=== PATIENT | female | born 1965 | race Caucasian/White ===

== ENCOUNTER 2016-12-10 08:33 | Emergency (ER) | payer BC ==
[~2016-12-10] VITALS: Ht 154.9 cm; Wt 52.0 kg
[~2016-12-10 08:33] MED LIST: CTLP20T PO; HYDR5SOL PO; IBUP200C PO; NAPR550T3 PO; OXYC1TAB87 PO; SPIR50TA29 PO; SULF-221 PO
--- OUTSIDE RECORDS SUMMARY | 2016-12-10 08:40 | XMS REPORT | Summary of Care ---
Author Author Jj Gold M.D. Organization Unknown Address Unknown Phone Unavailable Care Team Providers Care Bakery Decorator Name Role Phone Jj Gold M.D. Unavailable Unavailable Donny Teran M.D. Unavailable Unavailable Jj Gold Unavailable Unavailable Unavailable Unavailable Functional Status Name Dates Details Functional status health issues are not documented Status: Name Dates Details Cognitive status health issues are not documented Status: Problems Name Dates Details Basal cell carcinoma of skin of trunk (173.51, C44.519) Status: Active Depression (311, F32.9) Status: Active Actinic keratosis (702.0, L57.0) Status: Active Acne vulgaris (706.1, L70.0) Status: Active Lentigo (709.09, L81.4) Status: Active Pulled muscle (848.9, T14.8) Status: Active Canker sores oral (528.2, K12.0) Status: Active Neck pain (723.1, M54.2) Status: Active Fatigue (780.79, R53.83) Status: Active Insomnia (780.52, G47.00) Status: Active Anxiety disorder (300.00, F41.9) Status: Active Medications Name Dates Details Spironolactone 50 MG Oral Tablet Take one tablet by mouth twice a day Quantity: 1 Refills: 3 Dominik Teran M.D. Start 15-Aug-2013 Active 60 Tablet Bottle Adapalene 0.1 % External Cream APPLY SPARINGLY TO ACNE VULGARIS ONCE DAILY AT BEDTIME. Quantity: 1 Refills: 5 Dominik Teran M.D. Start 08-Oct-2014 Active 45 GM Tube Minocycline HCl - 100 MG Oral Capsule TAKE ONE CAPSULE BY MOUTH TWO TIMES A DAY Quantity: 60 Refills: 2 Dominik Teran M.D. Start 09-Aug-2015 Active Citalopram Hydrobromide 20 MG Oral Tablet TAKE 1 TABLET DAILY. Quantity: 90 Refills: 3 Jj Gold M.D. Start Active Vitamin D3 1000 UNIT Oral Capsule TAKE DIRECTED. Quantity: 30 Refills: 0 Start Active TraZODone HCl - 50 MG Oral Tablet TAKE 1 TABLET AT BEDTIME. Quantity: 90 Refills: 3 Gem M.D., Jj Start Active PredniSONE 50 MG Oral Tablet take 1 daily for 5 days Quantity: 5 Refills: 0 Gem M.D., Jj Start Active Indomethacin 50 MG Oral Capsule TAKE 1 CAPSULE 3 TIMES DAILY NEEDED. Quantity: 90 Refills: 1 Gem M.D., Jj Start Active Cyclobenzaprine HCl - 10 MG Oral Tablet TAKE 1 TABLET 3 TIMES DAILY NEEDED. Quantity: 60 Refills: 1 Gem M.D., Jj Start Active Allergies and Adverse Reactions Name Dates Details No Known Drug Allergies (Allergy) Status: Active Past Medical History Name Dates Details History of anemia (V12.3, Z86.2) Status: Resolved History of Basal cell carcinoma of eyebrow (173.31, C44.319) Status: Resolved History of breast lump (V13.89, Z87.898) Status: Resolved History of low back pain (V13.59, Z87.39) Status: Resolved History of Macrocytosis (289.89, D75.89) Status: Resolved History of skin cancer (V10.83, Z85.828) Status: Resolved Procedures Procedure Dates Details History of Tubal Ligation History of Breast Surgery Enlargement Procedure Procedures not documented Immunization Name Dates Details Immunizations not documented Social History Name Dates Details - Status: Name Dates Details Unknown if ever smoked Vital Signs Date Test Result Details 15:31 BP Systolic 110 mm[Hg] Status: Comments: Location: LUE; Position: Sitting BP Diastolic 70 mm[Hg] Status: Comments: Location: E; Position: Sitting Temperature 98.1 f Status: Comments: Method: Oral Heart Rate 76 /min Status: Comments: Location: ; Height 61 in Status: Weight 108 lb Status: Physical Findings 95 Status: Comments: O2 Saturation Body Mass Index Calculated 20.41 kg/m2 Status: Body Surface Area Calculated 1.45 m2 Status: Results Date Description Value Details Results not documented Plan of Care Name Dates Details Planned Observations Planned Goals not documented Planned Encounters Appointment; Provider: Dominik Teran M.D. On 14-Jun-2016 10:30 Interventions Provided Medication ChangesCitalopram Hydrobromide 20 MG Oral Tablet - RenewCyclobenzaprine HCl - 10 MG Oral Tablet - StartIndomethacin 50 MG Oral Capsule - StartPredniSONE 50 MG Oral Tablet - StartTraZODone HCl - 50 MG Oral Tablet - Renew Instructions Name Dates Details Instructions not documented Encounters Appointment; Dominik Teran M.D. Encounter Diagnosis: Problem not documented On 09:30 Appointment; Dominik Teran M.D. Encounter Diagnosis: Problem not documented On 16-Nov-2015 15:15 Appointment; Ricky Vegas M.D. Encounter Diagnosis: Problem not documented On 16-Sep-2015 09:45 Appointment; Dominik Teran M.D. Encounter Diagnosis: Problem not documented On 10-Aug-2015 06:45 Appointment; Dominik Teran M.D. Encounter Diagnosis: Problem not documented On 09-Aug-2015 13:45 Appointment; Dominik Teran M.D. Encounter Diagnosis: Problem not documented On 13-Apr-2015 06:30 Appointment; Dominik Teran M.D. Encounter Diagnosis: Problem not documented On 12-Apr-2015 14:45 Appointment; Dominik Teran M.D. Encounter Diagnosis: Problem not documented On 08-Oct-2014 13:15 Appointment; Dominik Teran M.D. Encounter Diagnosis: Problem not documented On 12-May-2014 11:15
[2016-12-10] MEDS: HYDROmorphone 1 MG/ML (DILAUDID) SYRINGE IM ONE (09:25)
[2016-12-10] MEDS: ONDANSETRON 4 MG (ZOFRAN) ORAL DISSOLVE TAB PO ONE (09:25)
--- NOTE | 2016-12-10 10:03 | Diagnostic Imaging Report ---
EXAMINATION: Left shoulder, 2 views. COMPARISON: None. HISTORY: 50-year-old female, anterior shoulder pain. FINDINGS: The acromioclavicular joint is normally aligned. There are no prominent acromioclavicular degenerative changes. The humeral head is normally positioned relative to the glenoid. The glenohumeral joint is grossly unremarkable in appearance. There is no identified acute fracture. There is no radiopaque foreign body. IMPRESSION: 1. Unremarkable radiographs of the left shoulder. Dictated by: Dictated on workstation # [id number]
--- NOTE | 2016-12-10 10:17 | NUR ---
INITIAL PAIN LT SHOULDER =8/10. REASSESS PAIN LT SHOULDER =5/10
[2016-12-10] MEDS ORDERED: TRAZ-28 PO (10:20)
[2016-12-10] MEDS ORDERED: MINO100C2 PO (10:20)
[2016-12-10] MEDS ORDERED: HYDR-3702 PO (10:27)
[2016-12-10 10:35] VITALS: BP 127/81
== END 2016-12-10 10:34 | disposition home or self-care (01) ==
LOC: EDUNIT# 08:33 → ED 08:36
DX: M25.512 Pain in left shoulder (principal)
CPT/HCPCS: 73030; 96372; 99283; J1170